=== PATIENT | male | born 1970 | race Caucasian/White ===

== ENCOUNTER 2017-03-08 19:16 | Emergency (ER) | payer BC ==
--- NOTE | 2017-03-09 19:09 | ER ---
ADMIT: 03/08/2017 RM/LOC: ER [facility] MR#: [id number] [address] [id number] EMILY MADRID [address] [address] Emergency Room Report SEX: M AGE: 46 : 1970 DATE: 03/08/2017 HISTORY OF PRESENT ILLNESS: The patient is a 46-year-old male, came to the ER with chief complaint of feeling congested and intermittent cough and low-grade fever of 100.2 or 100.3 measured at home for the last 2 weeks. The patient states he has a history of seasonal allergy. The patient denies any colorful sputum. The patient denies any chest pain. The patient also denies any shortness of breath. PHYSICAL EXAMINATION: VITAL SIGNS: The patient was afebrile in the ER. The patient states he took Tylenol before coming to the ER. The patient was not tachycardic, O2 saturation on room air was 99%. The patient was not tachypneic, in no obvious distress. HEENT/NECK: Normal oropharynx. Trachea midline. No stridor. No bruit on the neck. I did not hear any crackles or wheezing. ABDOMEN: Soft. The rest of the physical exam is noncontributory and negative. IMAGING: Chest x-ray was negative for any infiltration. DIAGNOSIS: With initial diagnosis of bronchitis, the patient was discharged to home with a prescription for Z-Navneet and follow up with the primary doctor as needed. Freddy Guevara MD/ vinnie JOB #: [id number] CC: Freddy Guevara MD, Attending Physician Leif Duran MD, Family Physician
== END 2017-03-08 20:40 | disposition home or self-care (01) ==
LOC: ER 19:16
DX: J20.9 Acute bronchitis, unspecified (principal); Z98.890 Other specified postprocedural states; Z91.041 Radiographic dye allergy status